=== PATIENT | male | born 1960 | race American Indian/Alaskan Native ===

== ENCOUNTER 2020-08-07 12:34 | Outpatient (CLI) | payer OTHER ==
--- NOTE | 2020-08-07 13:31 | XRay Report ---
LUMBAR SPINE 3 VIEWS INDICATION / CLINICAL INFORMATION: BACK PAIN. COMPARISON: None available. FINDINGS: Narrowing of the L4-5 disc space with moderate anterolisthesis of L4 on L5. Signer Name: Ab Crabtree MD FACR Signed: 08/07/2020 1:27 PM Workstation Name: [id number]
--- NOTE | 2020-08-07 13:31 | XRay Report ---
BILATERAL KNEES 6 VIEWS INDICATION / CLINICAL INFORMATION: KNEE PAIN. COMPARISON: None available. FINDINGS: No significant skeletal abnormality Signer Name: Ab Crabtree MD FACR Signed: 08/07/2020 1:26 PM Workstation Name: [email or web address]
== END 2020-08-07 12:35 | disposition home or self-care (01) ==
LOC: XRAY 12:34
PROVIDERS: ATTEND Internal Medicine
DX: M43.16 Spondylolisthesis, lumbar region (principal); M25.562 Pain in left knee; M25.561 Pain in right knee
CPT/HCPCS: 72100